=== PATIENT | male | born 1940 | race Two or more races ===

== ENCOUNTER 2019-10-14 07:34 | Outpatient (CLI) | payer OTHER | END 2019-10-14 07:46 | disposition home or self-care (01) | LOC: NUCLEAR 07:34 | DX: C34.11 Malignant neoplasm of upper lobe, right bronchus or lung (principal) | CPT/HCPCS: 78815; A9552 ==

== ENCOUNTER 2020-06-30 08:49 | Outpatient (CLI) | payer OTHER | END 2020-06-30 10:03 | disposition home or self-care (01) | LOC: NUCLEAR 08:49 | PROVIDERS: ATTEND Internal Medicine Hematology & Oncology | DX: C34.11 Malignant neoplasm of upper lobe, right bronchus or lung (principal) | CPT/HCPCS: 78815; A9552 ==

== ENCOUNTER 2021-01-29 07:30 | Outpatient (CLI) | payer OTHER | END 2021-01-29 07:31 | disposition home or self-care (01) | LOC: NUCLEAR 07:30 | PROVIDERS: ATTEND Internal Medicine Hematology & Oncology | DX: C34.11 Malignant neoplasm of upper lobe, right bronchus or lung (principal); C78.02 Secondary malignant neoplasm of left lung; C79.51 Secondary malignant neoplasm of bone | CPT/HCPCS: 78815; A9552 ==

== ENCOUNTER 2022-01-29 07:49 | Outpatient (CLI) | payer OTHER | END 2022-01-29 07:59 | disposition home or self-care (01) | LOC: NUCLEAR 07:49 | PROVIDERS: ATTEND Internal Medicine Hematology & Oncology | DX: C34.11 Malignant neoplasm of upper lobe, right bronchus or lung (principal); C78.02 Secondary malignant neoplasm of left lung; C79.51 Secondary malignant neoplasm of bone | CPT/HCPCS: 78812; A9552 ==